=== PATIENT | female | born 1945 | race Caucasian/White ===

== ENCOUNTER 2016-09-07 15:02 | Emergency (ER) | payer MEDICARE ==
[~2016-09-07] VITALS: Ht 154.9 cm; Wt 95.5 kg
[~2016-09-07 15:02] MED LIST: HYDR-3605 PO; LEVO75CA2 PO; MULT1CAP33 PO; PRE20 PO; SPIR25TA3 PO; ZYL100 PO
[2016-09-07 15:04] VITALS: BP 142/79; PULSE 73; RESP 18; O2SAT 95
--- NOTE | 2016-09-07 15:50 | ED.REPORT ---
HPI-Extremity Problem Lower Date of Service Sep 07, 2016 ED Provider: Gilberto Davis PA-C [place] is a 70-year-old female who presents with chief complaint of posterior right knee pain. Patient reports a 4-5 day history of pain in the back of her right knee. She also complains of dizziness, feeling flushed, lip tingling, warmth in the leg, irregular heartbeats. History of bilateral TKAs 8 months ago. She states that she is prone to clotting. Admits exogenous estrogen, denies trauma or immobilization in the last 3 days or surgery in the last 4 weeks, denies hemoptysis, denies active cancer. Nursing Notes Stated Complaint: R LEG POSSIBLE BLOOD CLOT Chief Complaint: Extremity Trauma Nursing Notes Reviewed: Yes Allergies: Coded Allergies: Penicillins (Verified Allergy, Intermediate, rash, 09/07/16) Sulfa (Sulfonamide Antibiotics) (Verified Allergy, Intermediate, rash, 09/07) acetaminophen (Verified Allergy, Intermediate, rash, 09/07/16) alprazolam (Verified Allergy, Intermediate, rash, 09/07/16) codeine (Verified Allergy, Intermediate, rash, 09/07/16) diphenhydramine (Verified Allergy, Intermediate, rash, 09/07/16) ibuprofen (Verified Allergy, Intermediate, rash, 09/07/16) latex (Verified Allergy, Intermediate, rash, 09/07/16) meperidine (Verified Allergy, Intermediate, rash, 09/07/16) methadone (Verified Allergy, Intermediate, rash, 09/07/16) morphine (Verified Allergy, Intermediate, rash, 09/07/16) pantoprazole (Verified Allergy, Intermediate, rash, 09/07/16) propoxyphene (Verified Allergy, Intermediate, rash, 09/07/16) ranitidine (Verified Allergy, Intermediate, rash, 09/07/16) trazodone (Verified Allergy, Intermediate, rash, 09/07/16) Scheduled Allopurinol (Allopurinol) 100 Mg Tablet 100 MG PO DAILY Levothyroxine (Tirosint) 75 Mcg Capsule Unknown Dose PO DAILY Multivitamin (Multivitamins) 1 Each Capsule 1 EACH PO DAILY Spironolactone (Spironolactone) 25 Mg Tablet Unknown Dose PO DAILY General Time Seen by MD: 15:34 Chief Complaint Knee injury right Past Medical History Past Medical History History Of Colon Polyps, Barretts Esophagus Gastroesphageal Reflux Past Surgical History EGD and colonoscopy Joint Replacement (BILAT TKA LAST ONE DECEMBER 2015) (TONSILS, HYSTO, BLADDER REPAIR) Smoking History Unknown if Ever Smoker Social History Alcohol Use: Denies alcohol use Drug Use: Denies drug use Ambulatory Status Wheelchair Review of Systems General: Denies fever, chills, malaise. HEENT: Denies congestion, headache, sore throat. Respiratory: Admits dyspnea, denies cough, shortness of breath, wheezing. Cardiovascular: Denies chest pain, admits palpitations. Gastrointestinal: Denies vomiting, diarrhea, abdominal pain. Genitourinary: Denies frequency, urgency, dysuria, hematuria. Otherwise as noted in HPI. Physical Exam General: Well appearing, well developed, well nourished, no acute distress. Head: Atraumatic, normocephalic. Eyes: No scleral icterus or injection. No discharge. Vision grossly intact. ENT: Voice clear, hearing grossly intact. Respiratory: Regular rate and rhythm. Breath sounds present, clear to auscultation and equal bilaterally. Cardiovascular: Irregularly irregular rate and rhythm, grade 2 systolic murmur. No pedal edema. Gastrointestinal: Abdomen flat and non-tender without guarding or rebound. Bowel sounds normoactive. Skin: Warm and dry. Slight asya edema to mid buitrago bilaterally Right knee: Midline anterior scar consistent with TKA, mild posterior tenderness. Legs: Circumference roughly equal bilaterally, nontender to palpation, negative Homans sign Neurological: Grossly nonfocal. Psychological: Alert and oriented. Speech appropriate, linear and logical. Behavior appropriate, though mildly anxious. Initial Vital Signs Vital Signs (First) Date Time Temp Pulse Resp B/P Pulse Ox O2 Delivery O2 Flow Rate FiO2 09/07/16 15:04 36.4 73 18 142/79 95 Initial VS: Reviewed, Vital signs normal Interpretation & Diagnostics Lab Results Interpretation Result Diagram: 09/07/16 1614 09/07/16 1614 Test 09/07/16 16:14 White Blood Count 7.0th/mm3 (3.8-10.1) Red Blood Count 4.82mil/mm3 (3.90-5.20) Hemoglobin 15.7g/dL (12.0-15.6) Hematocrit 45.5% (35.0-46.0) Mean Corpuscular Volume 94.4fL (81-100) Mean Corpuscular Hemoglobin 32.6pg (27.0-35.0) Mean Corpuscular Hemoglobin Concent 34.5% (32.0-37.0) Red Cell Distribution Width 13.5% (12.3-15.4) Platelet Count 140bil/L (150-400) Neutrophils (%) (Auto) 68.3% (40-74) Lymphocytes (%) (Auto) 20.7% (14-46) Monocytes (%) (Auto) 9.2% (4-12) Eosinophils (%) (Auto) 1.1% (0-5) Basophils (%) (Auto) 0.6% (0-3) Prothrombin Time 10.9sec (8.1-12.5) Prothromb Time International Ratio 1.02ratio Sodium Level 142mEq/L (134-144) Potassium Level 4.2mEq/L (3.5-5.2) Chloride Level 103mEq/L (97-108) Carbon Dioxide Level 23mmol/L (18-29) Blood Urea Nitrogen 22mg/dL (8-27) Creatinine 1.02mg/dL (0.57-1.00) Estimat Glomerular Filtration Rate 77mL/min (>59) Glucose Level 131mg/dL (60-99) Calcium Level 9.5mg/dL (8.5-10.1) Total Bilirubin 0.4mg/dL (0.0-1.2) Aspartate Amino Transf (AST/SGOT) 22U/L (0-50) Alanine Aminotransferase (ALT/SGPT) 14U/L (0-32) Alkaline Phosphatase 54U/L (25-165) Total Protein 6.8g/dL (6.4-8.4) Albumin 4.0g/dL (3.4-5.0) Hold Patten Top Tube Received (Received) Re-Eval/Medical Decision Med Decision/Clinical Course 70-year-old female presents emergency department with chief complaint of posterior right knee pain. She was instructed to present by her primary care provider out of concern for possible DVT. Patient also complains of intermittent lightheaded dizziness without syncope or presyncope, tingling lips , flushing. Ultrasound is reassuring that there is no DVT. Physical exam reveals an irregularly irregular heart rate, sinus arrhythmia with several PACs is confirmed with ECG. CBC and CMP are within acceptable limits I was concerned about possible pulmonary embolism due to her description of dizziness. However she is not tachycardic or tachypneic, short of breath. meets Wells low risk criteria, though PERC criteria are not met. I discussed case with Dr. stone and we feel comfortable she does not have a pulmonary embolus. She has no focal neurological deficits, making stroke less likely. We determined she is stable and safe for discharge to home with primary care follow-up in about a week. Return precautions provided. Discharge & Departure Impression: Primary Impression: Sinus arrhythmia seen on electrocardiogram Additional Impression: Knee pain, right Chronicity: acute Qualified Code: M25.561 - Pain in right knee Disposition: Home Discharge Condition All VS Reviewed: Yes Condition: Stable Additional Instructions: Evaluation for possible DVT in the emergency department. She sound revealed no DVT in your right leg. Physical is otherwise reassuring. I was concerned that You sometimes have dizziness, and we performed an EKG. This revealed an unusual pattern called sinus arrhythmia. This is not dangerous at this time. I would like you to follow-up with your primary care provider in a week or so. Return to emergency department for any new or worsening symptoms and clearing chest pain, difficulty breathing, unilateral leg swelling or calf pain. Referrals: Yuki Bolton ARNP (PCP) EDSupervising Provider for APC: Antony Stone MD Attending Statement Attending attestation: I saw this patient in conjunction with Gilberto Davis PA-C. I agree with the workup, evaluation, treatment and disposition. Antony Stone MD copies to: Yuki Bolton ARNP Turner, Seth PA-C Sep 07, 2016 15:50 Antony Stone MD Sep 07, 2016 17:07
[2016-09-07 16:25] LABS: BASOPHILS % (AUTO) 0.6 % (0-3); EOSINOPHILS % (AUTO) 1.1 % (0-5); MONOCYTES % (AUTO) 9.2 % (4-12); Mean Corpuscular Hemoglobin 32.6 pg (27.0-35.0); Mean Corpuscular Volume 94.4 fL (81-100); NEUTROPHILS % (AUTO) 68.3 % (40-74); Platelet Count 140 bil/L (150-400)
[2016-09-07 16:38] LABS: INR 1.02 ratio
--- NOTE | 2016-09-07 16:40 | DRSVH ---
PROCEDURE: US VENOUS LEG DUPLEX BILATERAL INDICATIONS: Right leg pain and swelling. TECHNIQUE: Real-time imaging, as well as color and pulse Doppler interrogation, were performed of the deep veins of both legs from the inguinal ligament to the popliteal fossa. COMPARISON: None. FINDINGS: The deep veins are normally compressible, and free of intraluminal thrombus. Color and pu lse Doppler demonstrate normal phasic intravascular flow. There is normal augmentation response to d istal compression maneuver. IMPRESSION: No DVT in lower extremities. Dictated by: Sae Bae M.D. on 09/07/2016 at 16:38 Approved by: Sae Bae M.D. on 09/07/2016 at 16:39
== END 2016-09-07 17:22 | disposition home or self-care (01) ==
LOC: SED 15:02
DX: R94.31 Abnormal electrocardiogram [ECG] [EKG] (principal); M25.561 Pain in right knee; I49.9 Cardiac arrhythmia, unspecified; R20.2 Paresthesia of skin; R42 Dizziness and giddiness; K21.9 Gastro-esophageal reflux disease without esophagitis; Z96.653 Presence of artificial knee joint, bilateral; Z88.0 Allergy status to penicillin; Z88.2 Allergy status to sulfonamides; Z88.5 Allergy status to narcotic agent; Z88.8 Allergy status to other drugs, medicaments and biological substances; Z91.040 Latex allergy status

== ENCOUNTER 2017-02-02 02:27 | Emergency (ER) | payer MEDICARE ==
[~2017-02-02] VITALS: Ht 154.9 cm; Wt 97.7 kg
[~2017-02-02 02:27] MED LIST changes: -HYDR-3605 PO; -PRE20 PO
[2017-02-02 02:34] VITALS: BP 173/95; PULSE 53; RESP 18; O2SAT 98
--- NOTE | 2017-02-02 02:36 | ED.REPORT ---
HPI-General Illness Date of Service Feb 02, 2017 ED Provider: Dr. Rosenbaum 71 y/o female with a hx of GERD (on 1qd Omeprazole) and irregular heart beat presents to the ED complaining of chest pressure that woke her up just prior to arrival. The pt also reports increase in lower extremity swelling and pain in her left breast and left axilla. She denies hx of [place]. The pt also reports dizziness, spinning sensation and intermittent tingling sensation around her lips. She denies decreased sensation in her extremities. She is still experiencing mild discomfort in the ED but feels better overall. Nursing Notes Stated Complaint: CHEST PAIN Chief Complaint: Chest Pain Nursing Notes Reviewed: Yes Allergies: Coded Allergies: Penicillins (Verified Allergy, Intermediate, rash, 02/02/17) Sulfa (Sulfonamide Antibiotics) (Verified Allergy, Intermediate, rash, 02/02) acetaminophen (Verified Allergy, Intermediate, rash, 02/02/17) alprazolam (Verified Allergy, Intermediate, rash, 02/02/17) codeine (Verified Allergy, Intermediate, rash, 09/07/16) diphenhydramine (Verified Allergy, Intermediate, rash, 09/07/16) ibuprofen (Verified Allergy, Intermediate, rash, 09/07/16) latex (Verified Allergy, Intermediate, rash, 09/07/16) meperidine (Verified Allergy, Intermediate, rash, 09/07/16) methadone (Verified Allergy, Intermediate, rash, 09/07/16) morphine (Verified Allergy, Intermediate, rash, 09/07/16) pantoprazole (Verified Allergy, Intermediate, rash, 09/07/16) propoxyphene (Verified Allergy, Intermediate, rash, 09/07/16) ranitidine (Verified Allergy, Intermediate, rash, 09/07/16) trazodone (Verified Allergy, Intermediate, rash, 09/07/16) Scheduled Allopurinol (Allopurinol) 100 Mg Tablet 100 MG PO DAILY Levothyroxine (Tirosint) 75 Mcg Capsule Unknown Dose PO DAILY Multivitamin (Multivitamins) 1 Each Capsule 1 EACH PO DAILY Spironolactone (Spironolactone) 25 Mg Tablet Unknown Dose PO DAILY General Time Seen by MD: 02:35 Chief Complaint Multip medical complaints Hx Obtained From: Patient Arrived By: Walk-in Sudden in Onset?: Yes Onset Occurred: Just prior to arrival Symptom Duration: Intermittent Location: : Chest Quality: Pressure Severity: Current: Mild Severity: Maximum: Moderate Recent Healthcare: No recent doctor visit Similar Sx Previous: No Past Medical History Past Medical History History Of Colon Polyps Barretts Esophagus Gastroesphageal Reflux Past Surgical History EGD and colonoscopy Joint Replacement (BILAT TKA LAST ONE DECEMBER 2015) (TONSILS, HYSTO, BLADDER REPAIR) Smoking History Unknown if Ever Smoker Social History Alcohol Use: Denies alcohol use Drug Use: Denies drug use Ambulatory Status Wheelchair Review of Systems Reports: tingling sensation around her lips Denies: decreased sensation in extremities Full Review of Systems Cardiovascular: Reports: Chest pain (chest pressure), Edema (chronic, but reports mild increase) Neurologic: Reports: Dizziness, Spinning sensation Complete sys rev & neg: except as marked. Physical Exam Vital Signs Vital Signs Date Time Temp Pulse Resp B/P Pulse Ox O2 Delivery O2 Flow Rate FiO2 02/02/17 05:55 59 22 146/65 100 Room Air 02/02/17 04:56 57 19 157/90 97 Room Air 02/02/17 02:34 36.5 53 18 173/95 98 Room Air Initial VS: Reviewed Head / Eyes: Atraumatic, Normocephalic Neck: Supple, Non-tender, Full range of motion Respiratory: Breath sounds normal, Clear to auscultation, No respiratory distress Abdomen / GI: Soft, Non-tender Skin: Warm, Dry, No cyanosis Neurologic: Alert, Oriented, Nonfocal General/Constitutional: Awake, Alert, Cooperative Distress / Hydration: Positive: Dehydration mild Head / Eyes: Atraumatic, Normocephalic, PERRL, EOMI Eye Movement: Positive: Nystagmus horizontal (prominent when looking left), Nystagmus present Cardiovascular: Heart rate NL, Regular rhythm, Heart sounds NL, No gallop, No murmurs, No rubs Lower Ext Edema: Positive: Bilateral 2+ (chronic) Upper Extremities Upper Extremity / MS: Atraumatic, Full range of motion, No swelling, No erythema, No deformity, Neurologic intact, Vascular intact Lower Extremity / Pelvis / MS: Atraumatic, Full range of motion, No deformity, Neurologic intact, Vascular intact Mild erythema present bilaterally but looks to be venous stenosis. Interpretation & Diagnostics Lab Results Interpretation Result Diagram: 02/02/17 0330 02/02/17 0405 Test 02/02/17 03:30 02/02/17 04:05 02/02/17 05:30 White Blood Count 6.4th/mm3 (3.8-10.1) Red Blood Count 4.85mil/mm3 (3.90-5.20) Hemoglobin 15.5g/dL (12.0-15.6) Hematocrit 45.4% (35.0-46.0) Mean Corpuscular Volume 93.6fL (81-100) Mean Corpuscular Hemoglobin 32.0pg (27.0-35.0) Mean Corpuscular Hemoglobin Concent 34.1% (32.0-37.0) Red Cell Distribution Width 13.2% (12.3-15.4) Platelet Count 157bil/L (150-400) Neutrophils (%) (Auto) 64.6% (40-74) Lymphocytes (%) (Auto) 21.0% (14-46) Monocytes (%) (Auto) 12.0% (4-12) Eosinophils (%) (Auto) 1.7% (0-5) Basophils (%) (Auto) 0.5% (0-3) Sodium Level 140mEq/L (134-144) Potassium Level 4.0mEq/L (3.5-5.2) Chloride Level 102mEq/L (97-108) Carbon Dioxide Level 22mmol/L (18-29) Blood Urea Nitrogen 18mg/dL (8-27) Creatinine 0.64mg/dL (0.57-1.00) Estimat Glomerular Filtration Rate 131mL/min (>59) Glucose Level 111mg/dL (60-99) Calcium Level 9.2mg/dL (8.5-10.1) Magnesium Level 1.9mg/dL (1.6-2.6) Total Bilirubin 0.4mg/dL (0.0-1.2) Aspartate Amino Transf (AST/SGOT) 22U/L (0-50) Alanine Aminotransferase (ALT/SGPT) 14U/L (0-32) Alkaline Phosphatase 56U/L (25-165) Pro-B-Type Natriuretic Peptide 204pg/mL (0-301) Total Protein 6.2g/dL (6.4-8.4) Albumin 3.7g/dL (3.4-5.0) Hold Patten Top Tube Received (Received) Troponin T 0.010ug/L (0.0-0.011) Hold [place] Top Tube Received (Received) ECG Interpretation ECG Interpretation: Sinus arrhtyhmia. Rate 54. Delayed R wave progression, probably WNL Time: 02:41 Interpreted by: ED physician X-Ray Chest Interpretation Chest Xray Interpretation: Normal Cardiomegaly evident View: Portable, 1 view Interpretation / Wet Read by: Wet read ED physician Re-Eval/Medical Decision Med Decision/Clinical Course 71-year-old female presents with vague chest discomfort possibly anginal. I suspect GI origin primarily. Await completion of rule out protocol. Signed out of [address] Flavio Rosenbaum. Counseled Regarding: Diagnosis Discharge & Departure Primary Impression: Chest pain Discharge Condition All VS Reviewed: Yes Referrals: Yuki Bolton ARNP (PCP) Care Transferred to: Flavio Rosenbaum Care Transferred at: 06:00 Scribe Attestation Portions of this note were transcribed by Nayeli Valencia. I, , personally performed the history, physical exam and medical decision- making;I reviewed and confirmed the accuracy of the information in the transcribed note. Signed by Chandler Keene. 02/02/17 03:44 copies to: Yuki Bolton ARNP Roberts, Christopher W MD Feb 02, 2017 02:36 Nayeli Valencia Feb 02, 2017 02:47
[2017-02-02 03:38] LABS: BASOPHILS % (AUTO) 0.5 % (0-3); EOSINOPHILS % (AUTO) 1.7 % (0-5); Mean Corpuscular Volume 93.6 fL (81-100); NEUTROPHILS % (AUTO) 64.6 % (40-74); Platelet Count 157 bil/L (150-400)
[2017-02-02 04:43] LABS: TROPONIN T 0.01 ug/L (0.0-0.011)
[2017-02-02 04:56] VITALS: BP 157/90; PULSE 57; RESP 19; O2SAT 97
[2017-02-02 04:57] LABS: Magnesium 1.9 mg/dL (1.6-2.6)
[2017-02-02 05:55] VITALS: BP 146/65; PULSE 59; RESP 22; O2SAT 100
[2017-02-02 07:22] VITALS: BP 134/80; PULSE 60; RESP 20; O2SAT 98
[2017-02-02] MEDS ORDERED: MECL-114 PO (07:38)
--- NOTE | 2017-02-02 10:25 | DRSVH ---
PROCEDURE: X-RAY CHEST ONE VIEW, PORTABLE ([id number]) INDICATIONS: CP TECHNIQUE: One view of the chest was acquired. COMPARISON: None. FINDINGS: Surgical changes and devices: None. Lungs and pleura: No pleural effusions or pneumothorax. Lungs are clear. Mediastinum: Mediastinal contours appear normal. Heart size is at the upper limits of normal. Bones and chest wall: No suspicious bony lesions. Overlying soft tissues appear unremarkable. IMPRESSION: 1. No acute cardiopulmonary disease. Dictated by: Octavio Thurston M.D. on 02/02/2017 at 10:03 Approved by: Octavio Thurston M.D. on 02/02/2017 at 10:17
== END 2017-02-02 07:20 | disposition home or self-care (01) ==
LOC: SED 02:30
DX: R07.89 Other chest pain (principal); M79.89 Other specified soft tissue disorders; M79.622 Pain in left upper arm; K21.9 Gastro-esophageal reflux disease without esophagitis; Z88.0 Allergy status to penicillin; Z88.2 Allergy status to sulfonamides; Z88.5 Allergy status to narcotic agent; Z88.8 Allergy status to other drugs, medicaments and biological substances